=== PATIENT | male | born 1960 | race Caucasian/White ===

== ENCOUNTER 2017-11-11 22:34 | Emergency (ER) | payer OTHER ==
[~2017-11-11] VITALS: Ht 177.8 cm; Wt 114.3 kg
[~2017-11-11 22:34] MED LIST: ACETAMINOPHEN-1 EAC1 PO; ALLEGRA180 MG PO; ASA81BEC; CELEXA 20 MG TA20 M1 PO; CELEXA 20 MG TA20 MG PO; CENTRUM SILVER1 EAC1 PO; CIPROFLOXACIN500 M1 PO; COZAAR 25 MG TA25 M1 PO; JANUVIA100 MG PO; LANTUS SOL100 UNIT/1 SQ; LIPITOR40 MG PO; METFORMIN HCL500 MG PO; NEXIUM40 MG PO; NORCO 5-325 TA1 EACH PO; ONDANSETRON HCL4 M2 PO; SIMVASTATIN40 MG PO; SINGULAIR 10 MG10 M1 PO; TORADOL 10 MG T10 MG PO; ZOFRAN ODT4 MG PO
[2017-11-11] MEDS ORDERED: PROTONIX40 M1 (22:52)
[2017-11-11] MEDS ORDERED: UNICOMPLEX M TA1 TA1 (22:53)
[2017-11-11] MEDS ORDERED: ZYRTEC10 MG (22:53)
[2017-11-11] MEDS ORDERED: CO Q-10300 MG (22:53)
[2017-11-11] MEDS ORDERED: ASPIR 8181 MG (22:53)
[2017-11-12] MEDS ORDERED: PREDNISONE50 MG PO (00:22)
[2017-11-12 00:30] VITALS: BP 144/88
== END 2017-11-12 00:35 | disposition home or self-care (01) ==
LOC: M.ERS 22:34
DX: R22.0 Localized swelling, mass and lump, head (principal); T78.1XXA Other adverse food reactions, not elsewhere classified, initial encounter; X58.XXXA Exposure to other specified factors, initial encounter; F41.9 Anxiety disorder, unspecified; K21.9 Gastro-esophageal reflux disease without esophagitis; E11.9 Type 2 diabetes mellitus without complications; Z79.4 Long term (current) use of insulin; Z88.8 Allergy status to other drugs, medicaments and biological substances

== ENCOUNTER 2017-11-26 06:59 | Emergency (ER) | payer OTHER ==
[~2017-11-26] VITALS: Ht 177.8 cm; Wt 113.4 kg
[~2017-11-26 06:59] MED LIST changes: +ASPIR 8181 MG; +CO Q-10300 MG; +PREDNISONE50 MG PO; +PROTONIX40 M1; +UNICOMPLEX M TA1 TA1; +ZYRTEC10 MG
[2017-11-26 07:12] VITALS: BP 154/100
[2017-11-26 07:26] LABS: URINE BILIRUBIN NEGATIVE (Negative); URINE BLOOD 3+ (Negative); URINE CLARITY CLEAR; URINE COLOR YELLOW; URINE GLUCOSE-RANDOM NEGATIVE (Negative); URINE KETONES NEGATIVE (Negative); URINE LEUKOCYTES-REFLEX NEGATIVE (Negative); URINE NITRITE-REFLEX NEGATIVE (Negative); URINE PROTEIN 1+ (Negative); URINE SPECIFIC GRAVITY >= 1.030 (1.005-1.030); URINE UROBILINOGEN 0.2 E.U./dl (0.2-1.0)
[2017-11-26 07:42] LABS: MUCUS 0-3 Light strn/LPF (None Seen); SQUAMOUS 0-3 Few /LPF (0-3)
[2017-11-26 07:43] LABS: CASTS None Seen /LPF (None Seen); CRYSTALS None Seen /LPF (None Seen); URINE RBC >20 Many /HPF (0-2)
[2017-11-26 07:44] LABS: BACTERIA-REFLEX 1-9 Few /HPF (None Seen); URINE WBC-REFLEX 0-5 Rare /HPF (0-5)
== END 2017-11-26 07:37 | disposition home or self-care (01) ==
LOC: M.ERS 06:59
PROVIDERS: Family Medicine
DX: R10.9 Unspecified abdominal pain (principal); F41.9 Anxiety disorder, unspecified; K21.9 Gastro-esophageal reflux disease without esophagitis; E11.9 Type 2 diabetes mellitus without complications; Z88.8 Allergy status to other drugs, medicaments and biological substances; Z91.013 Allergy to seafood

== ENCOUNTER → 2020-11-28 | Outpatient (CLI) | payer OTHER | LOC: M.LAB 07:23 | PROVIDERS: ATTEND Orthopaedic Surgery | DX: Z01.812 Encounter for preprocedural laboratory examination (principal); Z20.822 Contact with and (suspected) exposure to COVID-19 ==